=== PATIENT | male | born 1955 | race Caucasian/White ===

== ENCOUNTER 2017-12-20 09:40 | Day surgery (SDC) | payer OTHER, SELFPAY ==
--- NOTE | 2017-12-20 06:49 | COLE_ITS ---
Date of service: 12/20/17 Time of Service: 10:52 Colonoscopy Report Date of procedure: 12/20/17 Pre-op diagnosis general: Screening Colon Cancer Post-op diagnosis procedure note: same Procedure: Colonoscopy Surgeon: Deepali Sánchez Anesthesia proc note operative: MAC (Zari Aceves CRNA) Estimated blood loss (mL): 0 Pathology: none sent Complications: None Disposition: same day Indications: Mr. Nicholson is a pleasant 62 year old female seen in the office for a screening colonoscopy. Her last colonoscopy was in 2007 and was normal. Risks , complications and risks were reviewed with the patient. The patient wished to proceed. No guarantees were given or implied. Prep: Miralax/Dulcolax Procedure Start Time: 10:35 Procedure End Time: 10:49 Retraction Time: 11 minutes Findings: Normal Colon Procedure Description: After informed consent was obtained the patient was taken to the procedure room and placed in a left decubitous position. Monitors were applied and a time out was done. The patients name, date of , procedure, allergies to medications and metal in their body was reviewed. The patient was then sedated. Once sedated and comfortable a rectal exam was done. External exam was normal. Internal exam revealed a slightly decreased sphincter tone and no palpable masses. The prostate was normal. The scope was then introduced and retrofelexed. Small Grade I internal hemorrhoids were identified. The scope was then advanced to the cecum without difficulty. The TI and appendiceal orifice were identified. The prep was good. The scope was then slowly retracted over 11 minutes back into the rectum. The scope was removed and the patient was woken up and taken back to Same day surgery in stable condition. The patient tolerated the procedure well and there were no immediate complications. Follow up: The patient should follow up in 10 years unless they develop changes in bowel habits or other new gastrointestinal complaints.
--- NOTE | 2017-12-20 06:49 | PDOC.DSDIS_ITS ---
Discharge Plan Disposition Patient Disposition: HOME Condition: Good Discharge Details Reason For Visit: SCREENING Attending Provider: Deepali Sánchez Primary Care Provider: Polo Chan Home Meds and New Rx's Prescriptions: Continue multivitamin 1 EACH tablet 1 tab PO DAILY RF: 0 aspirin [Aspir-81] 81 MG tablet,delayed release (DR/EC) 81 mg PO DAILY RF: 0 folic acid 1 MG tablet 1 mg PO DAILY RF: 0 omega-3 fatty acids-fish oil 1 EACH capsule 1 cap PO DAILY RF: 0 ibuprofen 200 MG capsule 200 mg PO DAILY RF: 0 cyclosporine [Restasis] 1 EACH dropperette 1 drp Ophthalmic BID RF: 0 Discharge Instructions Instructions: Colonoscopy (DC) Additional Instructions: Findings: Normal Colon Follow up: 10 years New Medications: none Please call if you develop: fevers >101.5 Nausea or Vomiting Abdominal pain that is not transient 1. Because there will be medication in your system for the next 24 hours, you may feel a little sleepy. Your coordination will be affected. Therefore: a. Do not drive or operate dangerous equipment for 24 hours. b. Do not drink alcohol beverages for 24 hours (not even beer). c. Plan to go home and rest for the day. 2. Generally there are no restrictions on your activity after a day or so has gone by, but you may feel a bit fatigued for a few days. 3 After you arrive home you may have a light meal and return to a normal diet as you can tolerate it without feeling sick to your stomach. 4. After surgery, you may feel pain or discomfort. This should be only transient , but if it persists please contact your doctor. 5. If there are any questions regarding the findings of your procedure, please feel free to contact your doctor. 6. If you are unable to contact your doctor with a problem, contact the hospital at [phone]. 7. Continue all your regular medications unless directed otherwise. I understand the above instructions and have no questions. Signature of Patient or Responsible Adult Escort Date/Time Name of Responsible Adult Escort Signature of Nurse Date/Time Activity:: Activity as Tolerated Diet:: As Tolerated Discharge Orders Discharge Orders: Discharge Order (Routine); Ordered 12/20/17 Ordered By: Deepali Sánchez DS: Diagnosis Discharge Diagnosis (1) Normal colonoscopy: Status: Acute
[2017-12-20 09:51] VITALS: BP 128/86; PULSE 68; RESP 16; TEMP 36.7; O2SAT 99
[2017-12-20] MEDS: Lactated Ringers 1,000 ML 80 ML IV (10:15)
[2017-12-20 12:33] VITALS: BP 117/86; PULSE 74; RESP 14; TEMP 36.5; O2SAT 97
== END 2017-12-20 11:30 | disposition home or self-care (01) ==
LOC: SUR 09:40
PROVIDERS: PCP Emergency Medicine; Visit Provider Surgery
PROC: 0DJD8ZZ Inspection of Lower Intestinal Tract, Via Natural or Artificial Opening Endoscopic (ICD-10-PCS; CPT 45378; principal; 2017-12-20 12:00)
DX: Z12.11 Encounter for screening for malignant neoplasm of colon (principal)
CPT/HCPCS: 45378

== ENCOUNTER 2018-11-22 02:12 | Outpatient (CLI) | payer MEDICARE, SELFPAY ==
[2018-11-22 08:05] LABS: Calculated LDL 117 mg/dL; Cholesterol 185 mg/dL (50-200); HDL Cholesterol 48 mg/dL (40-60); Triglyceride 100 mg/dL (30-150)
[2018-11-23 10:01] LABS: PSA, Screening 3.5 ng/ml (0-4.5)
== END 2018-11-22 02:32 ==
PROVIDERS: PCP Emergency Medicine; Visit Provider Emergency Medicine
DX: R31.29 Other microscopic hematuria; Z12.5 Encounter for screening for malignant neoplasm of prostate; Z13.6 Encounter for screening for cardiovascular disorders
CPT/HCPCS: 36415; 80061; 84153

== ENCOUNTER 2019-11-28 09:20 | Outpatient (REF) | payer MEDICARE, SELFPAY ==
[2019-11-28 23:07] LABS: PSA, Screening 4.5 ng/mL (0.0-4.5)
== END 2019-11-28 09:40 ==
LOC: LBN 09:20
PROVIDERS: PCP Emergency Medicine; Visit Provider Emergency Medicine
DX: R31.29 Other microscopic hematuria (principal); Z12.5 Encounter for screening for malignant neoplasm of prostate
CPT/HCPCS: 84153

== ENCOUNTER 2020-02-29 03:25 | Outpatient (CLI) | payer MEDICARE, SELFPAY ==
[2020-02-29 17:42] LABS: PSA, Diagnostic 3.9 ng/mL (0.0-4.5)
== END 2020-02-29 03:45 ==
PROVIDERS: PCP Emergency Medicine; Visit Provider Emergency Medicine
DX: R97.20 Elevated prostate specific antigen [PSA] (principal)
CPT/HCPCS: 36415; 84153

== ENCOUNTER 2020-12-03 09:03 | Outpatient (REF) | payer MEDICARE, SELFPAY ==
[2020-12-03 22:11] LABS: PSA, Screening 4.9 ng/mL (0.0-4.5)
== END 2020-12-03 09:04 | disposition home or self-care (01) ==
LOC: LBN 09:03
PROVIDERS: PCP Emergency Medicine; Visit Provider Emergency Medicine
DX: Z12.5 Encounter for screening for malignant neoplasm of prostate (principal); R31.29 Other microscopic hematuria
CPT/HCPCS: 84153

== ENCOUNTER 2021-03-25 02:04 | Outpatient (CLI) | payer MEDICARE, SELFPAY ==
[2021-03-26 09:17] LABS: PSA, Diagnostic 4.8 ng/mL (0.0-4.5)
== END 2021-03-25 02:05 | disposition home or self-care (01) ==
LOC: LBO 02:04
PROVIDERS: PCP Family Medicine; Visit Provider Emergency Medicine
DX: R97.20 Elevated prostate specific antigen [PSA] (principal)
CPT/HCPCS: 36415; 84153

== ENCOUNTER 2021-09-16 03:20 | Outpatient (CLI) | payer MEDICARE, SELFPAY ==
[2021-09-16 11:36] LABS: ALT 16 U/L (16-63); AST 15 U/L (15-37); Alkaline Phosphatase 68 U/L (46-116); Anion Gap 10.5 mmol/L (3-11); BUN 21 mg/dL (7-18); Bilirubin, Total 0.5 mg/dL (0.2-1.0); CO2 23.5 mmol/L (21.0-32.0); CREATININE 1.1 mg/dL (0.70-1.30); Calcium 8.9 mg/dL (8.5-10.1); Calculated LDL 100 mg/dL (<100); Chloride 106 mmol/L (98-107); Cholesterol 176 mg/dL (<200); Glucose 95 mg/dL (74-106); HDL Cholesterol 48 mg/dL (40-60); Potassium 4.1 mmol/L (3.5-5.1); Sodium 140 mmol/L (136-145); Triglyceride 141 mg/dL (<150)
[2021-09-16 19:16] LABS: PSA, Screening 4.4 ng/mL (<=4.5)
[2021-09-17 10:31] LABS: Hepatitis C Ab w Rflx HCV PCR Negative (Negative)
[2021-09-17 11:52] LABS: HIV-1/2 Ag & Ab Screen Negative (Negative)
== END 2021-09-16 03:21 | disposition home or self-care (01) ==
LOC: LBO 03:20
PROVIDERS: PCP Family Medicine; Visit Provider Family Medicine
DX: R97.20 Elevated prostate specific antigen [PSA] (principal); Z11.59 Encounter for screening for other viral diseases; Z13.6 Encounter for screening for cardiovascular disorders; I10 Essential (primary) hypertension; Z12.5 Encounter for screening for malignant neoplasm of prostate
CPT/HCPCS: 36415; 80053; 80061; 84153; 86803; 87389

== ENCOUNTER → 2023-10-04 10:19 | Outpatient (BNVA) | payer MEDICARE, SELFPAY | PROVIDERS: PCP Family Medicine; Referring Provider Family Medicine; Visit Provider Surgery | DX: Z12.11 Encounter for screening for malignant neoplasm of colon (principal); Z80.0 Family history of malignant neoplasm of digestive organs ==

== ENCOUNTER 2023-10-25 11:51 | Day surgery (SDC) | payer MEDICARE, SELFPAY ==
[2023-10-25 12:57] VITALS: BP 130/87; PULSE 80; RESP 16; TEMP 36.5; O2SAT 97
[2023-10-25] MEDS: Lactated Ringers 1,000 ML 80 ML IV (13:00)
--- NOTE | 2023-10-25 13:37 | W.ANESPRE ---
General Info Date of Service Date Performed: 10/25/23 Height: 5 ft 8.75 in Weight: 83.7 kg Body Mass Index (BMI): 27.4 Surgical Procedure: Operation Date: 10/25/23 13:05 Proposed Procedure Side Surgeon p Colonoscopy Cruz Davis MD Meds Allergies and Home Medications Allergies Allergy/AdvReac Type Severity Reaction Status Date / Time No Known Allergies Allergy Verified 10/25/23 12:54 Home Medication ?Medication ?Instructions ?Recorded aspirin 81 mg tablet,delayed 81 mg PO DAILY 06/27/12 release (Aspir-) multivitamin 1 tab PO DAILY 06/27/12 omega-3 fatty acids-fish oil 300 1 cap PO DAILY 06/27/12 mg-1,000 mg capsule folic acid 400 mcg tablet 0.4 mg PO DAILY 11/18/18 ibuprofen 200 mg capsule 400 mg PO .am 12/03/20 bisacodyl 5 mg tablet,delayed 5 mg PO ONCE colonscopy bowel prep 10/04/23 release (Dulcolax (bisacodyl)) #4 tabs polyethylene glycol 3350 17 238 g PO ONCE colonoscopy prep 10/04/23 gram/dose oral powder #238 grams Current Visit Medications: Current Medications Generic Name Dose Route Start Last Admin Trade Name Freq PRN Reason Stop Dose Admin Ringer's Solution 1,000 mls @ 80 mls/hr 10/25/23 06:00 10/25/23 13:00 IV 11/21/23 23:59 80 mls/hr INFUSION MITCHEL Administration IV Miscellaneous Supplies 1 each 10/25/23 06:00 Iv Access IV 11/21/23 23:59 DIRECTED MITCHEL Sodium Chloride 0 ml 10/25/23 06:00 Normal Saline Flush 10 Ml Syr IV 11/21/23 23:59 PRN PRN Sodium Chloride 0 ml 10/25/23 06:00 Normal Saline 10 Ml Vial IJ 11/21/23 23:59 DIRECTED PRN Sterile Water 0 ml 10/25/23 06:00 Water,Injection,Sterile 10 Ml Vial IJ 11/21/23 23:59 DIRECTED PRN PFSH Active Problems Active Problems: Problem Status Onset Code Left leg pain Acute M79.605 Long-term use of aspirin therapy Acute Z79.82 Family history of malignant neoplasm of colon in relative diagnosed when older than 50 years of age Acute Z80.0 Left foot pain Acute M79.672 Leg laceration Acute 08/07/22 S81.819A Left knee pain Acute M25.562 Sciatica Acute M54.30 Elevated PSA Acute R97.20 Urethral stricture Acute Spermatocele Acute N43.40 Renal cyst Acute N28.1 Pinguecula of both eyes Acute H11.153 Microhematuria Acute R31.29 Medical History Medical History Comments:: Per pt. states after ulnar nerve surgery he had 'extreme shaking Surgical History Surgical History Hx of hammer toe correction Ulnar Nerve Transposition (~10/2012) Colonoscopy - MAC (~12/20/17) 2005-neg Tobacco Smoking/Tobacco Use Status: Never Passive smoking exposure: No Second hand exposure: No Alcohol Alcohol Intake: current Alcohol intake frequency: a few times a month Alcohol type: beer Substance Use Substance use: Never Substance use type: does not use Details: alcohol; T-14 Vital Signs and Lab Results Vital Signs Most Recent Vital Signs in EMR: Most Recent Vital Signs Temp Pulse Resp BP Pulse Ox 36.5 C 80 16 130/87 97 10/25/23 12:57 10/25/23 12:57 10/25/23 12:57 10/25/23 12:57 10/25/23 12:57 Lab Results Blood Type / Crossmatch: No Data to Display Complete Blood Count: No Data to Display Complete Metabolic Panel: No Data to Display Liver Function Panel: No Data to Display Coagulation Panel: No Data to Display Cardiac Panel: No Data to Display Arterial Blood Gas: No Data to Display Venous Blood Gas: No Data to Display Pancreas Panel: No Data to Display Thyroid Panel: No Data to Display Infectious Disease: No Data to Display Blood Cultures: No Data to Display Toxicology Panel: No Data to Display Anesthesia Assessment and Plan Anesthesia History Personal History: Other Family History: No Family History of Anesthesia Complications Exercise Tolerance Exercise Tolerance: Metabolic Equivalents>4 Pertinent Negatives Pertinent Negatives: No Symptoms of GERD, No Major Cardiovascular Symptoms or Complaints and No Major Pulmonary Symptoms or Complaints Cardiac & Pulmonary Exam Cardiac Exam: Normal S1/S2 Heart Sounds Pulmonary Exam: Clear Bilateral Breath Sounds Implantable Cardiac Device Does patient have a Pacemaker or an ICD?: No Airway Exam Known Difficult Airway: No Mallampati Class: 1 Mouth Opening: Normal (> 3cm) Thyromental Distance: Greater than 3 cm Neck Range of Motion: Full ROM Neck Circumference: Normal Teeth Condition: Normal Dentition ASA Classification ASA Score: ASA 2 Emergency Case?: No NPO Status NPO Status: NPO Clears >2 hours, Solids >8 hours Anesthesia Plan Resuscitation Status: Full Code Anesthesia Technique: General Anesthesia Airway Planned: Natural Airway Monitors Used: Standard Monitors
[2023-10-25 13:39] VITALS: BMI 27.4
--- NOTE | 2023-10-25 14:13 | BOWEL_PTH ---
PATIENT: Bharat Batista LOC: [facility] U#:[id number] AGE/SX: 68/M ROOM: RE10/25/[address]: Cruz Davis : 1955 BED: DIS: 10/25/2023 SPEC #: [id number] RECD: 10/25/23 18:21 STATUS: DOT [facility] #: [id number] ALLA: 10/25/23 14:[address]: Cruz Davis DEPT: Surgical Specimen RECD BY: Idania Todd ENTERED: 10/25/23 18:22 SP TYPE: Bowel OTHR DR: Clayton Barajas MD Tissues: 1 - BIOPSY BOWEL 2 - BIOPSY BOWEL Procedures: GROSS AND MICRO LEVEL 4 Comments: [id number]
[2023-10-25 14:27] VITALS: BP 112/88; PULSE 75; RESP 16; TEMP 36.1; O2SAT 95
--- NOTE | 2023-10-25 14:37 | W.COLOREPORT ---
Date of service: 10/25/23 Time of Service: 14:38 Colonoscopy Report Procedure Description: PROCEDURES PERFORMED: 1. Colonoscopy with cold forceps polypectomy PREOPERATIVE DIAGNOSIS: Surveillance colonoscopy POSTOPERATIVE DIAGNOSIS: Colon polyps SURGEON: Noris Davis MD INDICATION for procedure: The patient is a 68-year-old man without any symptoms. His (80yo) brother was recently diagnosed with rectal cancer. His last colonoscopy was 6 years ago and was normal. FINDINGS: The terminal ileum was normal. A small polyp was seen in the transverse colon and removed with cold forceps technique. In the rectum another small polyp was seen and removed with cold forceps technique. Both of these were about 2-3 mm in size and sessile. There was no obvious diverticular disease. There was no obvious hemorrhoid disease. SURVEILLANCE interval/FOLLOW-UP: 5 years because of the family history and finding small polyps today that are likely adenomatous SPECIMENS: yes EBL: Minimal COMPLICATIONS: None QUALITY of prep: Excellent Procedure in detail: The patient gave written consent and was in agreement with the indications, the potential risks as well as the benefits of the procedure. They were taken to the endoscopy suite and laid in the left lateral decubitus position. A timeout was performed and anesthesia was administered which was tolerated well. I started the procedure. Digital rectal and visual examination was performed and grossly within normal limits. A well-lubricated flexible colonoscope was then introduced and passed without any notable difficulty all the way to the cecum identified by the ileocecal valve and the appendiceal orifice. The terminal ileum was briefly intubated and looked normal. The scope was then slowly withdrawn with the above-noted findings. The patient tolerated the procedure well and was taken to the PACU in hemodynamically stable condition.
--- NOTE | 2023-10-25 14:41 | W.PM.DSUDISC ---
Date of service: 10/25/23 Time of Service: 14:41 Discharge Plan Disposition Patient Disposition: Home Condition: Good Discharge Details Attending Provider: Cruz Davis Primary Care Provider: Clayton Barajas Home Meds and New Rx's Prescriptions: No Action folic acid 400 mcg tablet 0.4 mg PO DAILY polyethylene glycol 3350 17 gram/dose powder 238 g PO ONCE Qty: 238 0RF Rx Instructions: take per colonoscopy instructions bisacodyl [Dulcolax (bisacodyl)] 5 mg tablet,delayed release (DR/EC) 5 mg PO ONCE Qty: 4 0RF Rx Instructions: take per colonoscopy instructions multivitamin 1 EACH tablet 1 tab PO DAILY aspirin [Aspir-81] 81 MG tablet,delayed release (DR/EC) 81 mg PO DAILY omega-3 fatty acids-fish oil 1 EACH capsule 1 cap PO DAILY ibuprofen 200 mg capsule 400 mg PO .am Discharge Instructions Additional Instructions: FINDINGS: 2 small polyps were found today. They are nothing to worry about. This is why we do the colonoscopies. Because of your family history and finding these polyps however, you should probably repeat another colonoscopy in 5 years. Repeat a colonoscopy sooner if at any point in time you develop bowel habit changes that last for more than a couple of weeks. Stand Alone Forms: Anesthesia Discharge Inst., Oseas Yadav (DSU), Colonoscopy Post Instructions Activity:: Activity as Tolerated Diet:: As Tolerated
[2023-10-25 15:00] VITALS: BP 126/82; PULSE 71; RESP 16; TEMP 36.5; O2SAT 97
--- NOTE | 2023-10-25 15:05 | W.ANESPOSTOP ---
Postoperative Evaluation Date, Time and Location Date Performed: 10/25/23 Time Performed: 14:30 Patient Location: Day Surgery Unit Vital Signs Most Recent Imported Vital Signs: Most Recent Vital Signs Temp Pulse Resp BP Pulse Ox 36.1 C L 75 16 112/88 95 10/25/23 14:27 10/25/23 14:27 10/25/23 14:27 10/25/23 14:27 10/25/23 14:27 Pain Score Most Recent Pain Score: Most Recent Pain Score Pain Level 0 10/25/23 14:27 Assessment Mental Status: Awake (Alert & Oriented to Patient Baseline) Airway and Respiratory Function: Patent airway with normal (patient baseline) respiratory exam Cardiovascular Function: Hemodynamically Stable Hydration Status: Adequately Hydrated Nausea & Vomiting: No Nausea or Vomiting Pain: Pt. Denies Any Pain Peripheral Nerve Block: Patient did not receive a nerve block
== END 2023-10-25 15:20 | disposition home or self-care (01) ==
PROVIDERS: PCP Family Medicine; Visit Provider Student in an Organized Health Care Education/Training Program
PROC: 0DJD8ZZ Inspection of Lower Intestinal Tract, Via Natural or Artificial Opening Endoscopic (ICD-10-PCS; CPT 45378; principal; 2023-10-25 13:00)
DX: Z12.11 Encounter for screening for malignant neoplasm of colon (principal); D12.8 Benign neoplasm of rectum; Z80.0 Family history of malignant neoplasm of digestive organs; D12.3 Benign neoplasm of transverse colon
CPT/HCPCS: 45380; 00123; 88305; J2001; J2704

== ENCOUNTER 2024-06-26 04:41 | Outpatient (CLI) | payer MEDICARE, SELFPAY ==
[2024-06-26 12:26] LABS: HCT 47.4 % (40.0-50.0); HGB 15.9 g/dL (13.5-17.5); MCH 30.6 pg (27.0-33.0); MCHC 33.5 % (32.0-36.0); MCV 91 fL (80-95); MPV 10.2 fL (8.0-11.0); Platelet Count 247 10^3/uL (130-400); RDW 12.8 % (11.8-14.1); RDW-SD 42.7 fL; WBC 5.35 10^3/uL (4.4-10.8)
[2024-06-26 12:55] LABS: Anion Gap 5.9 mmol/L (3-11); BUN 19 mg/dL (7-18); CO2 29.1 mmol/L (21.0-32.0); CREATININE 1.1 mg/dL (0.70-1.30); Calcium 9.4 mg/dL (8.5-10.1); Chloride 107 mmol/L (98-107); Estimated GFR 71.77 (mL/min/1.73m2); Glucose 85 mg/dL (74-106); Potassium 4.4 mmol/L (3.5-5.1); Sodium 142 mmol/L (136-145)
[2024-06-27 12:23] LABS: Hepatitis C Ab w Rflx HCV PCR Negative (Negative)
[2024-06-27 12:30] LABS: HIV-1/2 Ag & Ab Screen Negative (Negative)
[2024-06-27 12:33] LABS: HBs Antibody, Quant <3.1 mIU/mL (See Note); Hep B Surface Ab Negative (See Note); Hepatitis B Core Antibody Negative (Negative); Hepatitis B Surface Antigen Negative (Negative)
[2024-06-27 18:54] LABS: Calculated LDL 140 mg/dL (<100); Cholesterol 201 mg/dL (<200); HDL Cholesterol 51 mg/dL (>or=40); Triglyceride 50 mg/dL (<150)
== END 2024-06-26 04:42 | disposition home or self-care (01) ==
LOC: LOS 04:43
PROVIDERS: PCP Family Medicine; Visit Provider Family Medicine
DX: Z11.59 Encounter for screening for other viral diseases (principal); E87.1 Hypo-osmolality and hyponatremia; E78.5 Hyperlipidemia, unspecified; R53.83 Other fatigue; Z00.00 Encounter for general adult medical examination without abnormal findings
CPT/HCPCS: 36415; 80048; 80061; 85027; 86704; 86706; 86803; 87340; 87389